=== PATIENT | female | born 1985 | race Caucasian/White ===

== ENCOUNTER 2018-08-05 11:06 | Outpatient (CLI) | payer OTHER ==
--- NOTE | 2018-08-05 14:32 | US ---
EXAMINATION TYPE: US OB BPP wo non-stress DATE OF EXAM: 08/05/2018 COMPARISON: NONE CLINICAL HISTORY: non reactive NST . EXAM PERFORMED: Transabdominal (TA) BPP PARAMETERS: PRESENTATION: Breech HEART RATE: 139 bpm RHYTHM: Normal CLIFFORD: 14.2 DIAPHRAGM IMAGED: BPP SCORIN. Breathin (1 episode of breathing of 30 second duration in 30 minutes of scanning time) 2. Movement: 2 (at least 3 discrete body movements in 30 minutes) 3. Tone: 2 (1 episode of active flexion/extension of limb) 4. CLIFFORD: 2 (CLIFFORD index > 5cm) TOTAL SCORE: 8 / 8
--- NOTE | 2018-08-11 11:18 | P.MSEPDOC ---
Presenting Problems - Arrival Data Date of Arrival on Unit: 08/05/18 Time of Arrival on Unit: 11:02 Mode of Transport: Ambulatory - Complaint OB-Reason for Admission/Chief Complaint: NST Comment: sent from office with orders for NST Physician Notification (Pre) - Physician Notified Physician Notified Date: 08/05/18 Physician Notified Time: 11:45 Physician/Practitioner Notifed:: TREMP New Order Received: Yes (BPP) Disposition - Disposition OB Disposition: Discharge to home, Written follow up instructions reviewed Discharge Date: 08/05/18 Discharge Time: 12:30 I agree with the RN Medical Screening Exam: Yes Risk & Benefit of care provided described in d/c instruction: Yes Diagnosis: DECREASED MOVEMENTS, UNSPECIFIED TRIMESTER, FETUS 1
== END 2018-08-05 12:30 | disposition home or self-care (01) ==
LOC: FBPOP 11:06
PROVIDERS: ATTEND Obstetrics & Gynecology Obstetrics
DX: O36.8190 Decreased fetal movements, unspecified trimester, not applicable or unspecified (principal); Z3A.00 Weeks of gestation of pregnancy not specified
CPT/HCPCS: 59025; 76819